=== PATIENT | male | born 2000 | race Caucasian/White ===

== ENCOUNTER 2023-09-08 16:46 | Emergency (ER) | payer BC ==
--- NOTE | 2023-09-08 18:53 | RAD REPORT ---
EXAM DESCRIPTION: RAD - Foot Right 3 View - 09/08/2023 6:43 pm CLINICAL HISTORY: PAIN COMPARISON: No comparisons FINDINGS: Mild subluxation is seen at the fifth toe PIP joint. No fracture is evident.
[2023-09-08] MEDS ORDERED: IBUPROFEN 400 MG TAB ONE (19:14)
[2023-09-08] MEDS ORDERED: LIDOCAINE 1% 20 ML MDV ONE (20:13)
[2023-09-08] MEDS ORDERED: BUPIVACAINE 0.5% PF 10 ML VIAL ONE (20:13)
--- NOTE | 2023-09-08 21:08 | RAD REPORT ---
EXAM DESCRIPTION: RAD - Foot Right 3 View - 09/08/2023 8:59 pm CLINICAL HISTORY: post small toe reduction Pain and swelling COMPARISON: Foot Right 3 View dated 09/08/2023 FINDINGS: No fracture or dislocation seen. Mild subluxation at PIP joint fifth toe appears slightly reduced.
--- NOTE | 2023-09-08 21:46 | RAD REPORT ---
EXAM DESCRIPTION: RAD - Foot Right 3 View - 09/08/2023 9:38 pm CLINICAL HISTORY: post reduction Pain and swelling. COMPARISON: Foot Right 3 View dated 09/08/2023; Foot Right 3 View dated 09/08/2023 FINDINGS: Mild soft tissue swelling affects the fifth toe. No fracture seen. No real change is noted at the fifth digit PIP joint.
--- NOTE | 2023-09-08 21:50 | ER ---
Nurse's Notes [facility] Name: Neo Walsh Age: 23 yrs Sex: Male : 2000 Arrival Date: 09/08/2023 Time: 16:46 Bed 17 Private MD: Diagnosis: Dislocation of Proximal Interphalangeal Joint Right Fifth Toe Presentation: 09/07 17:06 Chief complaint: Foot caught on gym mat last night, c/o right 5th toe pain 5/10. hb Bruising noted to toe and top of foot. Coronavirus screen: At this time, the client does not indicate any symptoms associated with coronavirus-19. Ebola Screen: No symptoms or risks identified at this time. Initial Sepsis Screen: Does the patient meet any 2 criteria? No. Patient's initial sepsis screen is negative. Does the patient have a suspected source of infection? No. Patient's initial sepsis screen is negative. Risk Assessment: Do you want to hurt yourself or someone else? Patient reports no desire to harm self or others. Onset of symptoms was September 07, 2023. 17:06 Method Of Arrival: Ambulatory hb 17:06 Acuity: NIGHAT 4 hb Triage Assessment: 17:08 General: Appears in no apparent distress. Behavior is calm, cooperative. Pain: Pain hb currently is 5 out of 10 on a pain scale. Neuro: Level of Consciousness is awake, alert, obeys commands, Oriented to person, place, time, situation. Cardiovascular: Patient's skin is warm and dry. Respiratory: Respiratory effort is even, unlabored, Respiratory pattern is regular, symmetrical. Musculoskeletal: Reports pain in right fifth toe and Right fifth toenail. Historical: - Allergies: 17:08 No Known Allergies; hb - Home Meds: 17:08 None [Active]; hb - PMHx: 17:08 None; hb - PSHx: 17:08 None; hb - Immunization history:: Adult Immunizations up to date. - Infectious Disease History:: Denies. - Social history:: Smoking status: Patient denies any tobacco usage or history of. Screenin:25 [facility] ED Fall Risk Assessment (Adult) History of falling in the last 3 months, bm8 including since admission No falls in past 3 months (0 pts) Confusion or Disorientation No (0 pts) Intoxicated or Sedated No (0 pts) Impaired Gait No (0 pts) Mobility Assist Device Used No (0 pt) Altered Elimination No (0 pt) Score/Fall Risk Level 0 - 2 = Low Risk Oriented to surroundings, Maintained a safe environment, Educated pt \T\ family on fall prevention, incl call for assistance when getting out of bed. Abuse screen: Denies threats or abuse. Nutritional screening: No deficits noted. Tuberculosis screening: No symptoms or risk factors identified. Assessment: 19:00 Reassessment: Patient appears in no apparent distress at this time. Patient and/or bm8 family updated on plan of care and expected duration. Pain level reassessed. Patient is alert, oriented x 3, equal unlabored respirations, skin warm/dry/pink. General: Appears in no apparent distress. uncomfortable, Behavior is calm, cooperative. Pain: Complains of pain in right fifth toe and Right fifth toenail. Pain: Pain does not radiate. Pain currently is 5 out of 10 on a pain scale. Quality of pain is described as aching, crampy, Pain began 1 day ago. Neuro: Level of Consciousness is awake, alert, obeys commands, Oriented to person, place, time, situation, Vineyardist are equal bilaterally Moves all extremities. Cardiovascular: No deficits noted. Capillary refill < 3 seconds Patient's skin is warm and dry. Respiratory: Airway is patent Respiratory effort is even, unlabored, Respiratory pattern is regular. GI: No deficits noted. No signs and/or symptoms were reported involving the gastrointestinal system. : No deficits noted. No signs and/or symptoms were reported regarding the genitourinary system. EENT: No deficits noted. No signs and/or symptoms were reported regarding the EENT system. Derm: Skin is intact, Skin is dry, Skin is bruising to right 5th metatarsal. Musculoskeletal: Capillary refill < 3 seconds, Range of motion: intact in all extremities, Tenderness present in right fifth toe and Right fifth toenail Reports pain in right fifth toe and Right fifth toenail since last night following martial arts class. 21:09 Reassessment: Patient appears in no apparent distress at this time. Patient and/or bm8 family updated on plan of care and expected duration. Pain level reassessed. Patient is alert, oriented x 3, equal unlabored respirations, skin warm/dry/pink. Patient states feeling better. Patient states symptoms have improved. 22:05 Reassessment: Patient appears in no apparent distress at this time. Patient and/or bm8 family updated on plan of care and expected duration. Pain level reassessed. Patient is alert, oriented x 3, equal unlabored respirations, skin warm/dry/pink. Patient states feeling better. Patient states symptoms have improved. Vital Signs: 17:06 BP 148 / 82; Pulse 75; Resp 16; Temp 98.5(TE); Pulse Ox 100% on R/A; Weight 61.23 kg; hb Height 5 ft. 8 in. ; Pain 5/10; 19:25 BP 129 / 83; Pulse 81; Resp 18; Temp 98.6; Pulse Ox 98% on R/A; Pain 5/10; bm8 21:09 BP 135 / 72; Pulse 77; Resp 16; Temp 98.5; Pulse Ox 100% on R/A; Pain 2/10; bm8 22:05 BP 132 / 75; Pulse 62; Resp 18; Temp 98.2; Pulse Ox 99% on R/A; Pain 0/10; bm8 17:06 Body Mass Index 20.53 (61.23 kg, 172.72 cm) hb 17:06 Pain Scale: Adult hb 19:25 Pain Scale: Adult bm8 21:09 Pain Scale: Adult bm8 22:05 Pain Scale: Adult bm8 [place] Coma Score: 19:25 Eye Response: spontaneous(4). Motor Response: obeys commands(6). Verbal Response: bm8 oriented(5). Total: 15. ED Course: 16:58 Patient arrived in ED. mg5 17:01 Eliseo Nuñez PA is PHCP. cp 17:02 Vijay Burnett MD is Attending Physician. cp 17:08 Triage completed. hb 17:08 Arm band placed on. hb 18:45 XRAY Foot RIGHT 3 View In Process Unspecified. EDMS 19:10 Kailash Ayala, RN is Primary Nurse. bm8 19:25 Patient has correct armband on for positive identification. Call light in reach. pt bm8 sitting at bedside. Provided Education on: post er care of injury. Door closed. Noise minimized. Visitors limited. Verbal reassurance given. 19:25 No provider procedures requiring assistance completed. Patient did not have IV access bm8 during this emergency room visit. 21:00 XRAY Foot RIGHT 3 View In Process Unspecified. EDMS 21:40 XRAY Foot RIGHT 3 View In Process Unspecified. EDMS 21:49 Shon Rahman DPM is Referral Physician. cp Administered Medications: 19:10 Drug: Ibuprofen PO 800 mg PO once Route: PO; bm8 20:20 Follow up: Response: No adverse reaction bm8 20:30 Drug: Lidocaine Infiltration (1 %) 5 ml 5 ml Infiltration once; to bedside {Note: admin bm8 by pa.} Volume: 5 ml; Route: Infiltration; 21:06 Follow up: Response: No adverse reaction bm8 20:30 Drug: Bupivacaine Infiltration (0.5 %) 5 ml 10 ml Infiltration once {Note: admin by bm8 PA.} Volume: 10 ml; Route: Infiltration; 21:06 Follow up: Response: No adverse reaction bm8 Medication: 19:25 VIS not applicable for this client. bm8 Outcome: 21:50 Discharge ordered by MD. cp 22:05 Discharged to home ambulatory, bm8 22:05 Condition: stable 22:05 Discharge instructions given to patient, family, Instructed on discharge instructions, follow up and referral plans. medication usage, safety practices, Demonstrated understanding of instructions, follow-up care, medications, Prescriptions given X 1, 22:06 Patient left the ED. bm8 Signatures: Dispatcher [employer] EDMS Eliseo Nuñez PA PA cp Baxter, Heather, RN RN Estefanía Mckeon mg5 Kailash Ayala RN RN bm8 Corrections: (The following items were deleted from the chart) 21:05 21:05 Bupivacaine Infiltration (0.5 %) 5 ml 10 ml Infiltration bm8 bm8
--- NOTE | 2023-09-08 21:50 | EDPHYS ---
Physician Documentation [facility] Name: Neo Walsh Age: 23 yrs Sex: Male : 2000 Arrival Date: 09/08/2023 Time: 16:46 Bed 17 Private MD: ED Physician Vijay Burnett HPI: 09/07 19:00 This 23 yrs old Male presents to ER via Ambulatory with complaints of Toe Injury. cp 19:00 The patient presents with decreased range of motion, a deformity, an injury, pain, that cp is acute. The complaints affect the right fifth toe. 19:00 Context: injury occurred after foot got caught on mat. cp 19:00 Onset: The symptoms/episode began/occurred last night. Associated signs and symptoms: cp The patient has no apparent associated signs or symptoms. Historical: - Allergies: 17:08 No Known Allergies; hb - Home Meds: 17:08 None [Active]; hb - PMHx: 17:08 None; hb - PSHx: 17:08 None; hb - Immunization history:: Adult Immunizations up to date. - Infectious Disease History:: Denies. - Social history:: Smoking status: Patient denies any tobacco usage or history of. ROS: 19:05 MS/extremity: Positive for injury or acute deformity, decreased range of motion, pain, cp swelling, tenderness, of the right fifth toe, 19:05 Neck: Negative for pain with movement, pain at rest, cp 19:05 Back: Negative for pain at rest, pain with movement, 19:05 All other systems are negative, Exam: 19:10 Constitutional: The patient appears in no acute distress, alert, awake, well developed, cp well nourished, 19:10 Musculoskeletal/extremity: Extremities: grossly normal except: noted in the right fifth cp toe: decreased ROM, deformity, pain, swelling, tenderness, Perfusion: the extremity is normally perfused throughout, the right fifth toe Sensation intact. Vital Signs: 17:06 BP 148 / 82; Pulse 75; Resp 16; Temp 98.5(TE); Pulse Ox 100% on R/A; Weight 61.23 kg; hb Height 5 ft. 8 in. ; Pain 5/10; 19:25 BP 129 / 83; Pulse 81; Resp 18; Temp 98.6; Pulse Ox 98% on R/A; Pain 5/10; bm8 21:09 BP 135 / 72; Pulse 77; Resp 16; Temp 98.5; Pulse Ox 100% on R/A; Pain 2/10; bm8 22:05 BP 132 / 75; Pulse 62; Resp 18; Temp 98.2; Pulse Ox 99% on R/A; Pain 0/10; bm8 17:06 Body Mass Index 20.53 (61.23 kg, 172.72 cm) hb 17:06 Pain Scale: Adult hb 19:25 Pain Scale: Adult bm8 21:09 Pain Scale: Adult bm8 22:05 Pain Scale: Adult bm8 [place] Coma Score: 19:25 Eye Response: spontaneous(4). Motor Response: obeys commands(6). Verbal Response: bm8 oriented(5). Total: 15. MDM: 17:12 Patient medically screened. cp 21:50 Data reviewed: vital signs, nurses notes, radiologic studies, plain films. cp 21:50 I considered the following discharge prescriptions or medication management in the emergency department Medications were administered in the Emergency Department. See MAR. 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 ED course: attempt to relocate PIP joint right fifth toe unsuccessful. Toes abi taped and will discharge to have f/u with podiatry. 09/07 18:09 Order name: XRAY Foot RIGHT 3 View; Complete Time: 19:15 cp 09/07 20:35 Order name: XRAY Foot RIGHT 3 View; Complete Time: 21:48 cp 09/07 21:16 Order name: XRAY Foot RIGHT 3 View; Complete Time: 21:48 cp Administered Medications: 19:10 Drug: Ibuprofen PO 800 mg PO once Route: PO; bm8 20:20 Follow up: Response: No adverse reaction bm8 20:30 Drug: Lidocaine Infiltration (1 %) 5 ml 5 ml Infiltration once; to bedside {Note: admin bm8 by pa.} Volume: 5 ml; Route: Infiltration; 21:06 Follow up: Response: No adverse reaction bm8 20:30 Drug: Bupivacaine Infiltration (0.5 %) 5 ml 10 ml Infiltration once {Note: admin by bm8 PA.} Volume: 10 ml; Route: Infiltration; 21:06 Follow up: Response: No adverse reaction bm8 Disposition Summary: 09/08/23 21:50 Discharge Ordered Notes: Location: Home cp Problem: new cp Symptoms: have improved cp Condition: Stable cp Diagnosis - Other cp - Dislocation of Proximal Interphalangeal Joint Right Fifth Toe cp Followup: cp - With: Shon Rahman DPM - When: 2 - 3 days - Reason: Recheck today's complaints Discharge Instructions: - Discharge Summary Sheet cp - Toe Dislocation cp - Form - Return To Work bm8 Forms: - Medication Reconciliation Form cp - Thank You Letter cp - Antibiotic Education cp - Prescription Opioid Use cp - Patient Portal Instructions cp - Leadership Thank You Letter cp Prescriptions: - Ibuprofen 800 mg Oral Tablet - take 1 tablet ORAL route every 8 hours As needed take with food; 30 tablet; cp Refills: 0, Product Selection Permitted Signatures: Dispatcher [employer] EDMS Eliseo Nuñez PA PA cp Baxter, Heather, RN RN Kailash Ayala RN RN bm8 Corrections: (The following items were deleted from the chart) 09/08 21:45 09/07 19:00 Context: injury occurred while , cp cp
[2023-09-09 01:14] VITALS: BP 132/75; TEMP 98.2; O2SAT 99
== END 2023-09-08 22:06 | disposition home or self-care (01) ==
LOC: ER 16:46
DX: S93.114A Dislocation of interphalangeal joint of right lesser toe(s), initial encounter (principal)
CPT/HCPCS: 73630 ×3; 99283; J2001